=== PATIENT | female | born 1980 | race Hispanic/Latino ===

== ENCOUNTER 2018-03-01 17:39 | Emergency (ER) | payer SELFPAY | END 2018-03-01 18:30 | disposition home or self-care (01) | LOC: MADERS 17:39 | DX: H60.92 Unspecified otitis externa, left ear (principal); Z87.891 Personal history of nicotine dependence | CPT/HCPCS: 99282 ==

== ENCOUNTER 2019-01-20 12:49 | Emergency (ER) | payer SELFPAY ==
[2019-01-20] MEDS ORDERED: Ibuprofen 800 MG TAB ONE (12:59)
== END 2019-01-20 13:40 | disposition home or self-care (01) ==
LOC: MADERS 12:49
DX: J11.1 Influenza due to unidentified influenza virus with other respiratory manifestations (principal); F17.210 Nicotine dependence, cigarettes, uncomplicated; Z71.6 Tobacco abuse counseling
CPT/HCPCS: 99406

== ENCOUNTER 2019-04-02 08:45 | Emergency (ER) | payer OTHER, SELFPAY ==
[2019-04-02 09:13] LABS: #Basophils 0.1 thou/uL (0.0-0.2); #Eosinphils 0.1 thou/uL (0.0-0.7); #Lymphocytes 2.5 thou/uL (1.20-3.40); #Monocytes 0.4 thou/uL (0.11-0.59); #Neutrophils 5.2 thou/uL (1.40-6.50); %Basophils 1.2 % (0.0-1.0); %Eosinophils 0.7 % (0.0-10.0); %Lymphocytes 29.9 % (21.0-51.0); %Monocytes 4.8 % (0.0-10.0); %Neutrophils 63.5 % (42.0-75.0); Hemoglobin 14.7 g/dL (12.0-16.0); Mean Corpuscular HGB CONC 31.3 g/dL (32.0-36.0); Mean Corpuscular Hemoglobin 27.4 pg (27.0-31.0); Mean Corpuscular Volume 87.6 fL (78.0-98.0); Mean Platelet Volume 8.5 fL (7.4-10.4); Platelet Count 293 thou/uL (130-400); RBC Distribution Width 11.3 % (11.5-14.5); Red Blood Cell (RBC) Count 5.36 mill/uL (4.20-5.40); White Blood Cell (WBC) Count 8.2 thou/uL (4.8-10.8)
== END 2019-04-02 10:05 | disposition home or self-care (01) ==
LOC: MADERS 08:45
DX: O20.0 Threatened abortion (principal); Z87.891 Personal history of nicotine dependence; Z3A.01 Less than 8 weeks gestation of pregnancy
CPT/HCPCS: 36415; 84702; 85025; 86900; 86901; 99284

== ENCOUNTER 2020-09-13 09:31 | Emergency (ER) | payer BC, OTHER | END 2020-09-13 11:00 | disposition home or self-care (01) | LOC: MADERS 09:31 | DX: J01.90 Acute sinusitis, unspecified (principal); F17.210 Nicotine dependence, cigarettes, uncomplicated | CPT/HCPCS: 87081; 87430; 99283 ==

== ENCOUNTER 2020-09-17 11:14 | Emergency (ER) | payer BC ==
[2020-09-17] MEDS ORDERED: Ibuprofen 600 MG TAB ONE (11:55)
[2020-09-17] MEDS ORDERED: Lidocaine 1% 20 ML MDV ONE (11:56)
[2020-09-17] MEDS ORDERED: cefTRIAXone\\ROCEPHIN 1 GM VIAL ONE (11:56)
== END 2020-09-17 12:39 | disposition home or self-care (01) ==
LOC: MADERS 11:14
DX: J01.90 Acute sinusitis, unspecified (principal); I10 Essential (primary) hypertension; Z87.891 Personal history of nicotine dependence
CPT/HCPCS: 96372; 99283; J0696; J1040

== ENCOUNTER 2021-06-25 20:06 | Emergency (ER) | payer BC, SELFPAY ==
[2021-06-25] MEDS ORDERED: Orphenadrine Citrate 60 MG/2 ML VIAL ONE (21:26)
[2021-06-25] MEDS ORDERED: Ketorolac Tromethamine 30 MG/ML VIAL ONE (21:26)
== END 2021-06-25 22:12 | disposition home or self-care (01) ==
LOC: MADERS 20:06
DX: M54.50 Low back pain, unspecified (principal); Z87.891 Personal history of nicotine dependence; X50.0XXA Overexertion from strenuous movement or load, initial encounter
CPT/HCPCS: 96372; 99283; J1885; J2360

== ENCOUNTER 2022-09-18 12:22 | Outpatient (CLI) | payer OTHER ==
[2022-09-18 13:26] LABS: ALT (SGPT) 41 U/L (8-55); AST (SGOT) 28 U/L (5-34); Albumin 4.2 g/dL (3.5-5.0); Alkaline Phosphatase 61 U/L (40-110); Anion Gap 12 mmol/L (10-20); BUN (Urea Nitrogen) 8 mg/dL (7.0-18.7); Bilirubin, Total 0.4 mg/dL (0.2-1.2); Calc. Creatinine Clearance 0 mL/min (70-130); Calcium 9.4 mg/dL (7.8-10.44); Carbon Dioxide 24 mmol/L (22-29); Chloride 107 mmol/L (98-107); Estimated GFR 110; Globulin 3.3 g/dL (2.4-3.5); Glucose 90 mg/dL (70-105); Potassium 3.8 mmol/L (3.5-5.1); Protein, Total 7.5 g/dL (6.0-8.3); Sodium 139 mmol/L (136-145)
[2022-09-18 13:28] LABS: CKMB 0.9 ng/mL (0-6.6)
== END 2022-09-18 12:23 | disposition home or self-care (01) ==
LOC: MADRAD 12:22
PROVIDERS: ATTEND Family Medicine
DX: R07.9 Chest pain, unspecified (principal)
CPT/HCPCS: 36415; 71046; 80053; 82553; 84484

== ENCOUNTER 2022-12-04 14:41 | Emergency (ER) | payer BC, OTHER ==
[2022-12-04] MEDS ORDERED: Dexamethasone 4 MG TAB ONE (15:19)
[2022-12-04] MEDS ORDERED: Dexamethasone 10 MG/ML VIAL ONE (15:19)
== END 2022-12-04 15:48 | disposition home or self-care (01) ==
LOC: MADERS 14:41
DX: J02.9 Acute pharyngitis, unspecified (principal); I10 Essential (primary) hypertension; Z87.891 Personal history of nicotine dependence
CPT/HCPCS: 87081; 87430; 87804; 99283; J1100; J8540

== ENCOUNTER → 2023-01-21 | Outpatient (CLI) | payer SELFPAY ==
[2023-01-21 12:22] LABS: ALT (SGPT) 47 U/L (8-55); AST (SGOT) 28 U/L (5-34); Albumin 4.3 g/dL (3.5-5.0); Alkaline Phosphatase 59 U/L (40-110); Anion Gap 13 mmol/L (10-20); BUN (Urea Nitrogen) 14 mg/dL (7.0-18.7); Bilirubin, Total 0.5 mg/dL (0.2-1.2); Calc. Creatinine Clearance 0 mL/min (70-130); Calcium 9.5 mg/dL (7.8-10.44); Carbon Dioxide 24 mmol/L (22-29); Chloride 106 mmol/L (98-107); Cholesterol 289 mg/dl (< 200 Desired); Estimated GFR 103; Glucose 112 mg/dL (70-105); HDL Cholesterol 36 mg/dL (>60 Neg Risk); LDL Cholesterol, Calculated 205 mg/dL; Potassium 4.4 mmol/L (3.5-5.1); Protein, Total 7.3 g/dL (6.0-8.3); Sodium 139 mmol/L (136-145); Triglycerides 242 mg/dL (Less than 150)
[2023-01-21 17:48] LABS: Hemoglobin A1c 6.1 % (4.0-6.0)
== END ==
LOC: EDSTATUS 10:11 → MADLABBHPM 12:04
PROVIDERS: ATTEND Family Medicine
DX: I10 Essential (primary) hypertension (principal); Z88.3 Allergy status to other anti-infective agents
CPT/HCPCS: 80053; 80061; 83036

== ENCOUNTER 2023-06-22 22:04 | Emergency (ER) | payer SELFPAY ==
[2023-06-22] MEDS ORDERED: Thiamine HCl 200 MG/2 ML VIAL ONE (22:23)
[2023-06-22] MEDS ORDERED: Lactated Ringer's 2,000 ML ONE (22:24)
[2023-06-22 22:28] LABS: #Basophils 0.1 thou/uL (0.0-0.2); #Lymphocytes 2.2 thou/uL (1.20-3.40); #Monocytes 0.6 thou/uL (0.11-0.59); #Neutrophils 9.4 thou/uL (1.40-6.50); %Basophils 0.7 % (0.0-1.0); %Eosinophils 0.2 % (0.0-10.0); %Lymphocytes 17.6 % (21.0-51.0); %Monocytes 4.8 % (0.0-10.0); %Neutrophils 76.7 % (42.0-75.0); Hematocrit 44.9 % (36.0-47.0); Hemoglobin 13.5 g/dL (12.0-16.0); Mean Corpuscular Hemoglobin 26.8 pg (27.0-31.0); Mean Corpuscular Volume 89.2 fl (78.0-98.0); Mean Platelet Volume 7.3 fL (7.4-10.4); Platelet Count 275 10x3/uL (130-400); RBC Distribution Width 12.4 % (11.5-14.5); Red Blood Cell (RBC) Count 5.04 mill/uL (4.20-5.40); White Blood Cell (WBC) Count 12.2 10x3/uL (4.8-10.8)
[2023-06-22 22:36] LABS: INR-International Normal Ratio 1.1; Prothrombin Time 14.2 sec (12.0-14.7)
[2023-06-22 22:37] LABS: PTT 31.9 sec (22.9-36.1)
[2023-06-22 22:41] LABS: BHCG - Serum Negative (NEGATIVE); Pregs Control Background? CLEAR/WHITE (CLR/WHITE); Pregs Control Bar Appear? YES (CONTROL BAR)
[2023-06-22 22:43] LABS: ALT (SGPT) 22 U/L (8-55); AST (SGOT) 15 U/L (5-34); Alkaline Phosphatase 56 U/L (40-110); Anion Gap 13 mmol/L (10-20); BUN (Urea Nitrogen) 11 mg/dL (7.0-18.7); Bilirubin, Total 0.6 mg/dL (0.2-1.2); Calc. Creatinine Clearance 0 mL/min (70-130); Calcium 8.9 mg/dL (7.8-10.44); Carbon Dioxide 21 mmol/L (22-29); Chloride 109 mmol/L (98-107); Estimated GFR 98; Globulin 3.1 g/dL (2.4-3.5); Glucose 114 mg/dL (70-105); Protein, Total 7.1 g/dL (6.0-8.3); Sodium 139 mmol/L (136-145)
[2023-06-22 22:46] LABS: Troponin I Less than 0.010 ng/mL (< 0.028)
[2023-06-22 23:06] LABS: Acetaminophen Less than 10 mcg/mL (10.0-30.0); Alcohol Less than 10.0 mg/dL (Less than 10); Salicylate Less than 8.0 mg/dL (15.0-30.0)
[2023-06-23] LABS: Amphetamine Not Detected (NotDetected); Barbiturates Screen Not Detected (NotDetected); Benzodiazepine Screen Not Detected (NotDetected); Cocaine Metabolite Screen Not Detected (NotDetected); Methadone Not Detected (NotDetected); Methamphetamine Not Detected (NotDetected); Opiate Screen Not Detected (NotDetected); Oxycodone Screen Not Detected (NotDetected); Phencyclidine (PCP) Not Detected (NotDetected); THC/Cannabinoid Screen Detected (NotDetected); Tricyclic Screen Not Detected (NotDetected)
[2023-06-23] MEDS ORDERED: Lorazepam 2 MG/ML VIAL ONE (00:10)
[2023-06-23] MEDS ORDERED: Dexamethasone 10 MG/ML VIAL ONE (02:04)
== END 2023-06-23 04:38 | disposition short-term general hospital (02) ==
LOC: MADERS 22:04
DX: G93.40 Encephalopathy, unspecified (principal); R42 Dizziness and giddiness; E05.90 Thyrotoxicosis, unspecified without thyrotoxic crisis or storm; J34.1 Cyst and mucocele of nose and nasal sinus; E11.9 Type 2 diabetes mellitus without complications; E78.2 Mixed hyperlipidemia; I10 Essential (primary) hypertension; F17.210 Nicotine dependence, cigarettes, uncomplicated; Z79.899 Other long term (current) drug therapy
CPT/HCPCS: 51701; 70450; 71045; 72170; 80053; 80306; 80307; 83735; 84443; 84484; 84703; 85025; 85610; 85730; 93005; 94760; 96374; 96375; J1100; J2060; J3411; J7120